=== PATIENT | female | born 1955 | race Caucasian/White ===

== ENCOUNTER 2022-05-17 13:58 | Inpatient (IN) ==
--- NOTE | 2022-05-17 15:28 | DR.EXTPAIN ---
HPI Time seen Time Seen by Provider: 05/17/22 15:26 PCP Primary Care Physician: MOE HPI Comment HPI Comment: A 66 y/o female in the ED due to being sick for last 5 days. She has: headaches, anorexia, productive cough and SOB. She is a chronic smoker but does not have a PCP. Complaint/Symptoms Chief Complaint:: PTS DAUGHTER STATES SHE HAS BEEN DISORIENTED SINCE WEDNESDAY, PT STATES SHE HAS BEEN SICK SINCE WEDNESDAY. PT STATES SHE HAS JUST BEEN SICK WITH HEADACHES, ARTHRITIS, AND NO APPETITE, PT ALSO ADMITS TO BEING SHORT OF BREATH. ROOM O2 @79%. COVID-19 Coronavirus risk:travel/contact w/high risk person: No Has patient experienced Coronavirus symptoms: Yes Coronavirus symptoms experienced: Coughing and Shortness of Breath Nurses notes reviewed Nurses Notes Review: Yes Source History Provided: Patient Mode of arrival Mode of Arrival: Ambulatory Timing Onset of Chief Complaint: 05/11/22 Context History of: None Associated signs and symptoms Associated Signs and Symptoms: Cough, Headache and Shortness of Breath PMH PMH Past Medical History: No Past Surgical History: Yes Surgical History: Hysterectomy Family History History of Family Medical Conditions: No Social History Does patient currently use any type of tobacco product: No Have you used tobacco products in the last 12 months: No Type of Tobacco Use: Cigarettes Does any household member use tobacco: Yes Alcohol Use: None Do you use any recreational Drugs:: No Lives With: Alone Lives Where: Home Travel Risk Coronavirus risk:travel/contact w/high risk person: No Has patient experienced Coronavirus symptoms: Yes Coronavirus symptoms experienced: Shortness of Breath Infectious screening In the last 2 months have you had wt loss of >10#?: NO Have you had fever, night sweats or hemotysis?: No Have you traveled outside the country in the last 6 months?: No Isolation: Standard ROS Review of Systems Constitutional: Loss of Appetite Eyes: No Symptoms Reported ENTM: No Symptoms Reported Respiratoy: Productive Cough and Short of Breath Cardiovascular: No Symptoms Reported Gastrointestinal/Abdominal: No Symptoms Reported Genitourinary: No Symptoms Reported Neurological: Headache Musculoskeletal: No Symptoms Reported Integumentary: No Symptoms Reported Hematologic/Lymphatic: No Symptoms Reported Endocrine: No Symptoms Reported Psychiatric: No Symptoms Reported All Other Systems: Reviewed and Negative PE Vital Signs Vitals: Pulse Rate 96 Respiratory Rate 30 Blood Pressure 140/68 O2 Sat by Pulse Oximetry 88 General Limitations: No Limitations General Appearance: Alert and In No Apparent Distress Head Head Exam: Normal Inspection, Atraumatic and Normocephalic Eyes Eye exam: Normal Appearance and EOMI ENT ENT Exam: Normal Exam, Normal Oropharynx, Normal External Ear Exam and Mucous Membranes Moist Neck Neck Exam: Normal Inspection, Full ROM and Trachea Midline Chest Chest Inspection: Normal Inspection and Symmetric Chest Wall Rise Respiratory Respiratory Exam: Normal Lung Sounds Bilat Cardiovascular Cardiovascular Exam: Regular Rate, Normal Rhythm, Normal Heart Sounds, +S1 and +S2 Abdominal Exam Abdominal Exam: Normal Inspection, Normal Bowel Sounds and Soft Extremities Extremities Exam: Normal Inspection and Full ROM Back Back Exam: Normal Inspection and Full ROM Neurological Neurological Exam: Alert, Oriented X3 and CN II-XII Intact Psychiatric Psychiatric Exam: Normal Affect and Normal Mood Skin Skin Exam: Dry, Intact and Normal Color COURSE Treatment Treatment: her test results were discussed with her and her family as well as my impression of her CXR study. She was given a script for home O2 as she had desatuarated from mid 90s on 5L O2 down into the low 80%s. Her O2 sat was 79% in triage. She has no local PCP and I implored her to find a local PCP in town. I also talked to her about the need to taper and ultimately stop smoking, as her CXR is suggestive/compatible with COPD - currentl, she smokes 1.5 PPD of cigarettes. Reevaluation 1st: Improved Education/Counseling Education/Counseling: Patient, Family, Education and Counseling Educated On: Treatment, Diagnosis, Prognosis and Needs for Follow Up ROR Labs Reviewed Result Diagrams: 05/17/22 15:50 05/17/22 15:50 Laboratory: WBC 4.9 X10^3/uL (3.6-10.0) 05/17/22 15:50 RBC 5.73 X10^6/uL (3.5-5.4) H 05/17/22 15:50 Hgb 16.9 g/dL (12.0-16.0) H 05/17/22 15:50 Hct 50.2 % (36.0-47.0) H 05/17/22 15:50 MCV 87.7 fL (80.0-100.0) 05/17/22 15:50 MCH 29.5 pg (27.0-34.0) 05/17/22 15:50 MCHC 33.7 g/dL (33.0-35.0) 05/17/22 15:50 RDW 13.7 % (11.6-16.5) 05/17/22 15:50 Plt Count 108 X10^3/uL (150.0-450.0) L 05/17/22 15:50 MPV 7.7 fL (7.4-11.0) 05/17/22 15:50 Neut % (Auto) 82.6 % (42.0-75.0) H 05/17/22 15:50 Lymph % (Auto) 6.5 % (21.0-51.0) L 05/17/22 15:50 [place] % (Auto) 9.3 % (0.0-13.0) 05/17/22 15:50 Eos % (Auto) 1.3 % (0.9-2.9) 05/17/22 15:50 Baso % (Auto) 0.3 % (0.2-1.0) 05/17/22 15:50 Neut # (Auto) 4.0 x10^3/uL (2.2-4.8) 05/17/22 15:50 Lymph # (Auto) 0.3 X10^3/uL (1.3-2.9) L 05/17/22 15:50 Emmons # (Auto) 0.4 x10^3/uL (0.3-0.8) 05/17/22 15:50 Eos # (Auto) 0.1 x10^3/uL (0.0-0.2) 05/17/22 15:50 Baso # (Auto) 0.0 X10^3/uL (0.0-0.1) 05/17/22 15:50 Absolute Nucleated RBC 0.0 /100WBC 05/17/22 15:50 Sodium 132 mmol/L (136-145) L 05/17/22 15:50 Corrected Sodium 134 mmol/L (136-145) L 05/17/22 15:50 Potassium 3.9 mmol/L (3.5-5.1) 05/17/22 15:50 Chloride 93 mmol/L (98-107) L 05/17/22 15:50 Carbon Dioxide 31.3 mmol/L (21-32) 05/17/22 15:50 BUN 14 mg/dL (7-18) 05/17/22 15:50 Creatinine 0.96 mg/dL (0.55-1.02) 05/17/22 15:50 Est GFR (MDRD) Af Amer > 60 (>60) 05/17/22 15:50 Est GFR (MDRD) Non-Af > 60 (>60) 05/17/22 15:50 Glucose 186 mg/dL (65-99) H 05/17/22 15:50 Calcium 8.4 mg/dL (8.5-10.1) L 05/17/22 15:50 Corrected Calcium 9.2 mg/dL (8.5-10.1) 05/17/22 15:50 Total Bilirubin 0.50 mg/dL (0.2-1.0) 05/17/22 15:50 AST 21 Units/L (15-37) 05/17/22 15:50 ALT 16 Units/L (12-78) 05/17/22 15:50 Alkaline Phosphatase 70 Units/L (46-116) 05/17/22 15:50 Total Protein 6.8 g/dL (6.4-8.2) 05/17/22 15:50 Albumin 3.0 g/dL (3.4-5.0) L 05/17/22 15:50 Globulin 3.8 g/dL (2.5-4.5) 05/17/22 15:50 Albumin/Globulin Ratio 0.8 Ratio (1.1-2.1) L 05/17/22 15:50 Specimen Type Clean catch urine 05/17/22 17:08 Urine Color Yellow (YELLOW) 05/17/22 17:08 Urine Appearance Slightly hazy (CLEAR) 05/17/22 17:08 Urine pH 5.0 (5.0 - 8.0) 05/17/22 17:08 Ur Specific [place] 1.015 (1.000-1.030) 05/17/22 17:08 Urine Protein 4+ (NEGATIVE) 05/17/22 17:08 Urine Glucose (UA) Negative (NEGATIVE) 05/17/22 17:08 Urine Ketones 1+ (NEGATIVE) 05/17/22 17:08 Urine Blood 1+ (NEGATIVE) 05/17/22 17:08 Urine Nitrite Negative (NEGATIVE) 05/17/22 17:08 Urine Bilirubin 1+ (NEGATIVE) 05/17/22 17:08 Urine Urobilinogen 1+ (NORMAL) 05/17/22 17:08 Ur Leukocyte Esterase 1+ (NEGATIVE) 05/17/22 17:08 Urine RBC 3-5 /HPF (0-3) A 05/17/22 17:08 Urine WBC 3-5 /HPF (0-5) 05/17/22 17:08 Ur Squamous Epith Cells Rare /HPF (NEGATIVE) 05/17/22 17:08 Urine Bacteria Trace /HPF (NEGATIVE) 05/17/22 17:08 Ur Culture Indicated? No/not indicated 05/17/22 17:08 SARS-CoV-2 (PCR) Positive (NEGATIVE) A 05/17/22 17:08 Influenza Type A (PCR) Negative (NEGATIVE) 05/17/22 17:08 Influenza Type B (PCR) Negative (NEGATIVE) 05/17/22 17:08 RSV (PCR) Negative (NEGATIVE) 05/17/22 17:08 Opioid Opioid Risk Tool Age (Rustam box if 16-45): No History of Preadolescent Sexual Abuse: No Total: 0 Total Score Risk Category: Low Risk Copyright: Sean NIELSEN predicting aberrant behaviors Discharge Plan Diagnosis Discharge Problem: COVID-19, COPD exacerbation Discharge Plan Patient Disposition: HOME, SELF-CARE Condition: Stable Prescriptions: New Paxlovid (EUA) 300 mg (150 mg x 2)-100 mg tablets,dose pack See Rx Instructions .ROUTE .COMPLEX Qty: 30 0RF Rx Instructions: take TWO 150 mg tablets of nirmatrelvir with ONE 100 mg tablet of ritonavir twice daily for 5 days Health Concerns: Post Hospitalization: new medications and changes needed to prevent readmission or further decline. Pt educated and given instructions on all concerns. Plan of Treatment: Continue with present treatment and follow up plan. Pt is to keep follow up ap pointment as instructed and take medications as ordered. Orders to Discharge Patient Discharge Orders: Discharge (Routine); Ordered 05/17/22 Ordered By: REYNA SOBOWALE Follow ups/Referrals Follow ups/Referrals: NFD,None [Primary Care Provider] - 3 days Instructions Instructions: COVID-19, Chronic Obstructive Pulmonary Disease, [id number]
[2022-05-17 16:04] LABS: BASOPHILS % (AUTO) 0.3 % (0.2-1.0); EOSINOPHILS # (AUTO) 0.1 x10^3/uL (0.0-0.2); EOSINOPHILS % (AUTO) 1.3 % (0.9-2.9); HEMATOCRIT 50.2 % (36.0-47.0); HEMOGLOBIN 16.9 g/dL (12.0-16.0); LYMPHOCYTES # (AUTO) 0.3 X10^3/uL (1.3-2.9); LYMPHOCYTES % (AUTO) 6.5 % (21.0-51.0); MEAN CORPUSCULAR HEMOGLOBIN 29.5 pg (27.0-34.0); MEAN CORPUSCULAR HGB CONC 33.7 g/dL (33.0-35.0); MEAN CORPUSCULAR VOLUME 87.7 fL (80.0-100.0); MEAN PLATELET VOLUME 7.7 fL (7.4-11.0); MONOCYTES # (AUTO) 0.4 x10^3/uL (0.3-0.8); MONOCYTES % (AUTO) 9.3 % (0.0-13.0); NEUTROPHILS % (AUTO) 82.6 % (42.0-75.0); RED BLOOD COUNT 5.73 X10^6/uL (3.5-5.4); RED CELL DISTRIBUTION WIDTH 13.7 % (11.6-16.5); WHITE BLOOD COUNT 4.9 X10^3/uL (3.6-10.0)
[2022-05-17 16:12] LABS: ALANINE AMINOTRANSFERASE 16 Units/L (12-78); ALKALINE PHOSPHATASE 70 Units/L (46-116); ASPARTATE AMINO TRANSFERASE 21 Units/L (15-37); BLOOD UREA NITROGEN 14 mg/dL (7-18); CALCIUM 8.4 mg/dL (8.5-10.1); CARBON DIOXIDE 31.3 mmol/L (21-32); CHLORIDE 93 mmol/L (98-107); COR CA(FOR HYPOALB) 9.2 mg/dL (8.5-10.1); COR NA(FOR HYPERGLY) 134 mmol/L (136-145); CREATININE 0.96 mg/dL (0.55-1.02); SODIUM 132 mmol/L (136-145); TOTAL PROTEIN 6.8 g/dL (6.4-8.2); eGFR NON BLACK RACES > 60 (>60)
[2022-05-17 17:29] LABS: BILIRUBIN,URINE 1+ (NEGATIVE); BLOOD/HEMOGLOBIN,URINE 1+ (NEGATIVE); GLUCOSE, URINE NEGATIVE (NEGATIVE); KETONES,URINE 1+ (NEGATIVE); LEUKOCYTE ESTERASE ,URINE 1+ (NEGATIVE); NITRITES,URINE NEGATIVE (NEGATIVE); PROTEIN,URINE 4+ (NEGATIVE); UROBILINOGEN,URINE 1+ (NORMAL)
[2022-05-17 17:40] LABS: APPEARANCE,URINE SLIGHTLY HAZY (CLEAR); BACTERIA,URINE TRACE /HPF (NEGATIVE); COLOR,URINE YELLOW (YELLOW); SQUAMOUS EPITHELIAL CELL,UR RARE /HPF (NEGATIVE)
[2022-05-17] MEDS ORDERED: LEVAQUIN PREMIX IV 500 MG 500 MG/100 ML BAG IV ONE ×2 (20:07→20:08)
--- NOTE | 2022-05-17 20:07 | DR.EXTPAIN ---
HPI Time seen Time Seen by Provider: 05/17/22 15:26 PCP Primary Care Physician: MOE Complaint/Symptoms Chief Complaint:: PTS DAUGHTER STATES SHE HAS BEEN DISORIENTED SINCE WEDNESDAY, PT STATES SHE HAS BEEN SICK SINCE WEDNESDAY. PT STATES SHE HAS JUST BEEN SICK WITH HEADACHES, ARTHRITIS, AND NO APPETITE, PT ALSO ADMITS TO BEING SHORT OF BREATH. ROOM O2 @79%. COVID-19 Coronavirus risk:travel/contact w/high risk person: No Has patient experienced Coronavirus symptoms: Yes Coronavirus symptoms experienced: Coughing and Shortness of Breath Source History Provided: Patient Mode of arrival Mode of Arrival: Ambulatory Timing Onset of Chief Complaint: 05/11/22 Associated signs and symptoms Associated Signs and Symptoms: Cough, Headache and Shortness of Breath PMH PMH Past Medical History: No Past Surgical History: Yes Surgical History: Hysterectomy Family History History of Family Medical Conditions: No Social History Does patient currently use any type of tobacco product: No Have you used tobacco products in the last 12 months: No Type of Tobacco Use: Cigarettes Does any household member use tobacco: Yes Alcohol Use: None Do you use any recreational Drugs:: No Lives With: Alone Lives Where: Home Travel Risk Coronavirus risk:travel/contact w/high risk person: No Has patient experienced Coronavirus symptoms: Yes Coronavirus symptoms experienced: Coughing and Shortness of Breath Infectious screening In the last 2 months have you had wt loss of >10#?: NO Have you had fever, night sweats or hemotysis?: No Have you traveled outside the country in the last 6 months?: No Isolation: Standard PE Vital Signs Vitals: Pulse Rate 104 Respiratory Rate 24 Blood Pressure 133/78 O2 Sat by Pulse Oximetry 88 COURSE Treatment Treatment: She was admited overnight to OBS status. She will need Home O@ for now upon discharge. Reevaluation 1st: Improved Education/Counseling Education/Counseling: Patient, Family, Education and Counseling Educated On: Treatment, Diagnosis, Prognosis and Needs for Follow Up ROR Labs Reviewed Result Diagrams: 05/17/22 15:50 05/17/22 15:50 Laboratory: WBC 4.9 X10^3/uL (3.6-10.0) 05/17/22 15:50 RBC 5.73 X10^6/uL (3.5-5.4) H 05/17/22 15:50 Hgb 16.9 g/dL (12.0-16.0) H 05/17/22 15:50 Hct 50.2 % (36.0-47.0) H 05/17/22 15:50 MCV 87.7 fL (80.0-100.0) 05/17/22 15:50 MCH 29.5 pg (27.0-34.0) 05/17/22 15:50 MCHC 33.7 g/dL (33.0-35.0) 05/17/22 15:50 RDW 13.7 % (11.6-16.5) 05/17/22 15:50 Plt Count 108 X10^3/uL (150.0-450.0) L 05/17/22 15:50 MPV 7.7 fL (7.4-11.0) 05/17/22 15:50 Neut % (Auto) 82.6 % (42.0-75.0) H 05/17/22 15:50 Lymph % (Auto) 6.5 % (21.0-51.0) L 05/17/22 15:50 [place] % (Auto) 9.3 % (0.0-13.0) 05/17/22 15:50 Eos % (Auto) 1.3 % (0.9-2.9) 05/17/22 15:50 Baso % (Auto) 0.3 % (0.2-1.0) 05/17/22 15:50 Neut # (Auto) 4.0 x10^3/uL (2.2-4.8) 05/17/22 15:50 Lymph # (Auto) 0.3 X10^3/uL (1.3-2.9) L 05/17/22 15:50 [place] # (Auto) 0.4 x10^3/uL (0.3-0.8) 05/17/22 15:50 Eos # (Auto) 0.1 x10^3/uL (0.0-0.2) 05/17/22 15:50 Baso # (Auto) 0.0 X10^3/uL (0.0-0.1) 05/17/22 15:50 Absolute Nucleated RBC 0.0 /100WBC 05/17/22 15:50 Sodium 132 mmol/L (136-145) L 05/17/22 15:50 Corrected Sodium 134 mmol/L (136-145) L 05/17/22 15:50 Potassium 3.9 mmol/L (3.5-5.1) 05/17/22 15:50 Chloride 93 mmol/L (98-107) L 05/17/22 15:50 Carbon Dioxide 31.3 mmol/L (21-32) 05/17/22 15:50 BUN 14 mg/dL (7-18) 05/17/22 15:50 Creatinine 0.96 mg/dL (0.55-1.02) 05/17/22 15:50 Est GFR (MDRD) Af Amer > 60 (>60) 05/17/22 15:50 Est GFR (MDRD) Non-Af > 60 (>60) 05/17/22 15:50 Glucose 186 mg/dL (65-99) H 05/17/22 15:50 Calcium 8.4 mg/dL (8.5-10.1) L 05/17/22 15:50 Corrected Calcium 9.2 mg/dL (8.5-10.1) 05/17/22 15:50 Total Bilirubin 0.50 mg/dL (0.2-1.0) 05/17/22 15:50 AST 21 Units/L (15-37) 05/17/22 15:50 ALT 16 Units/L (12-78) 05/17/22 15:50 Alkaline Phosphatase 70 Units/L (46-116) 05/17/22 15:50 Total Protein 6.8 g/dL (6.4-8.2) 05/17/22 15:50 Albumin 3.0 g/dL (3.4-5.0) L 05/17/22 15:50 Globulin 3.8 g/dL (2.5-4.5) 05/17/22 15:50 Albumin/Globulin Ratio 0.8 Ratio (1.1-2.1) L 05/17/22 15:50 Specimen Type Clean catch urine 05/17/22 17:08 Urine Color Yellow (YELLOW) 05/17/22 17:08 Urine Appearance Slightly hazy (CLEAR) 05/17/22 17:08 Urine pH 5.0 (5.0 - 8.0) 05/17/22 17:08 Ur Specific [place] 1.015 (1.000-1.030) 05/17/22 17:08 Urine Protein 4+ (NEGATIVE) 05/17/22 17:08 Urine Glucose (UA) Negative (NEGATIVE) 05/17/22 17:08 Urine Ketones 1+ (NEGATIVE) 05/17/22 17:08 Urine Blood 1+ (NEGATIVE) 05/17/22 17:08 Urine Nitrite Negative (NEGATIVE) 05/17/22 17:08 Urine Bilirubin 1+ (NEGATIVE) 05/17/22 17:08 Urine Urobilinogen 1+ (NORMAL) 05/17/22 17:08 Ur Leukocyte Esterase 1+ (NEGATIVE) 05/17/22 17:08 Urine RBC 3-5 /HPF (0-3) A 05/17/22 17:08 Urine WBC 3-5 /HPF (0-5) 05/17/22 17:08 Ur Squamous Epith Cells Rare /HPF (NEGATIVE) 05/17/22 17:08 Urine Bacteria Trace /HPF (NEGATIVE) 05/17/22 17:08 Ur Culture Indicated? No/not indicated 05/17/22 17:08 SARS-CoV-2 (PCR) Positive (NEGATIVE) A 05/17/22 17:08 Influenza Type A (PCR) Negative (NEGATIVE) 05/17/22 17:08 Influenza Type B (PCR) Negative (NEGATIVE) 05/17/22 17:08 RSV (PCR) Negative (NEGATIVE) 05/17/22 17:08 Opioid Opioid Risk Tool Age (Rustam box if 16-45): No History of Preadolescent Sexual Abuse: No Total: 0 Total Score Risk Category: Low Risk Copyright: Sean NIELSEN predicting aberrant behaviors Discharge Plan Diagnosis Discharge Problem: COVID-19, COPD exacerbation Discharge Plan Patient Disposition: 09 ADMITTED INPATIENT Condition: Stable Prescriptions: New Paxlovid (EUA) 300 mg (150 mg x 2)-100 mg tablets,dose pack See Rx Instructions .ROUTE .COMPLEX Qty: 30 0RF Rx Instructions: take TWO 150 mg tablets of nirmatrelvir with ONE 100 mg tablet of ritonavir twice daily for 5 days Health Concerns: Post Hospitalization: new medications and changes needed to prevent readmission or further decline. Pt educated and given instructions on all concerns. Plan of Treatment: Continue with present treatment and follow up plan. Pt is to keep follow up appointment as instructed and take medications as ordered. Orders to Discharge Patient Discharge Orders: Discharge (Routine); Ordered 05/17/22 Ordered By: REYNA MUÑOZ Transfer (Routine); Ordered 05/17/22 Ordered By: REYNA MUÑOZ Follow ups/Referrals Follow ups/Referrals: NFD,None [Primary Care Provider] - 3 days Instructions Instructions: COVID-19, Chronic Obstructive Pulmonary Disease, [id number]
[2022-05-17] MEDS ORDERED: SALINE 3% 15 ML NEB TX ONE (21:08)
[2022-05-17] MEDS ORDERED: SALINE 3% 15 ML NEB TX NEB ONE (21:15)
[2022-05-17] MEDS: DUONEB 0.5 MG/3 MG (3 mL) NEB SCH (21:15)
--- NOTE | 2022-05-17 22:08 | RAD ---
HISTORYsob, smokingSTUDYCHEST, 1 VIEWCOMPARISONNone availableTECHNIQUEChest radiographic imaging, AP portable projection, 1 imageFINDINGSNo cardiomegaly.No focal airspace disease.Brittni B-lines along the periphery of the right lung base.Increased interstitial markings; particularly in the lower lobes.No pleural effusion.No pneumothorax.No acute osseous abnormality.IMPRESSIONFindings are concerning for mild pulmonary edema given the Brittni B-lines along the periphery of the right lung base. No focal infiltrate.Electronically signed by: Rambo Cordova (May 17, 2022 22:07:00)
[2022-05-18] MEDS: TYLENOL 325 MG TAB PO PRN ×2 (00:04→09:01)
[2022-05-18] MEDS: DUONEB 0.5 MG/3 MG (3 mL) NEB SCH ×6 (00:19→21:34)
[2022-05-18 05:30] LABS: ABG BASE EXCESS 10.1 mmol/L (-2.0-2.0)
[2022-05-18 06:40] LABS: BASOPHILS % (AUTO) 0.1 % (0.2-1.0); HEMOGLOBIN 16.6 g/dL (12.0-16.0); LYMPHOCYTES # (AUTO) 0.9 X10^3/uL (1.3-2.9); LYMPHOCYTES % (AUTO) 17.1 % (21.0-51.0); MEAN CORPUSCULAR HEMOGLOBIN 29.7 pg (27.0-34.0); MEAN CORPUSCULAR VOLUME 87.4 fL (80.0-100.0); MONOCYTES # (AUTO) 0.5 x10^3/uL (0.3-0.8); MONOCYTES % (AUTO) 9.7 % (0.0-13.0); NEUTROPHILS # (AUTO) 3.9 x10^3/uL (2.2-4.8); NEUTROPHILS % (AUTO) 73.1 % (42.0-75.0); RED CELL DISTRIBUTION WIDTH 13.7 % (11.6-16.5); WHITE BLOOD COUNT 5.3 X10^3/uL (3.6-10.0)
[2022-05-18 06:46] LABS: ALANINE AMINOTRANSFERASE 11 Units/L (12-78); ALBUMIN 2.6 g/dL (3.4-5.0); ALKALINE PHOSPHATASE 63 Units/L (46-116); ASPARTATE AMINO TRANSFERASE 18 Units/L (15-37); BLOOD UREA NITROGEN 14 mg/dL (7-18); CALCIUM 8.1 mg/dL (8.5-10.1); CARBON DIOXIDE 31.1 mmol/L (21-32); CHLORIDE 95 mmol/L (98-107); COR CA(FOR HYPOALB) 9.2 mg/dL (8.5-10.1); COR NA(FOR HYPERGLY) 136 mmol/L (136-145); CREATININE 0.98 mg/dL (0.55-1.02); SODIUM 134 mmol/L (136-145); TOTAL PROTEIN 6.3 g/dL (6.4-8.2); eGFR NON BLACK RACES > 60 (>60)
[2022-05-18] MEDS: VSL#3 PO SCH (08:42)
[2022-05-18] MEDS ORDERED: MICRO K EXTEN CAP 10 MEQ PO PRN (09:21)
[2022-05-18] MEDS ORDERED: POTASSIUM CHL 60 MEQ/NS 0.45% 500 ML IV PRN (09:21)
[2022-05-18] MEDS ORDERED: KLOR-CON PO PRN (09:21)
[2022-05-18] MEDS ORDERED: K-RIDER 10 MEQ/NS 100 ML 10 MEQ/100 ML BAG IV PRN (09:21)
[2022-05-18] MEDS ORDERED: POTASSIUM CHLORIDE LIQ 20 MEQ UDC PO PRN (09:21)
[2022-05-18] MEDS ORDERED: POTASSIUM CHL 40 MEQ/NS 0.45% 500 ML IV PRN (09:21)
[2022-05-18] MEDS ORDERED: K-DUR TAB 20 MEQ PO PRN (09:21)
[2022-05-18] MEDS: MAGNESIUM SULFATE 1 GRAM/100 mL PREMIX 1 G/100 ML BAG IV PRN ×2 (10:11→11:52)
[2022-05-18] MEDS: PULMICORT NEB TX 0.5 MG NEB SCH ×2 (13:13→21:34)
[2022-05-18 13:58] LABS: ABG HCO3 32.5 mmol/L (22-26)
[2022-05-18] MEDS: SOLU-Medrol 40 MG VIAL IVP SCH ×2 (14:00→14:09)
[2022-05-18] MEDS: ROBITUSSIN DM PO SCH ×3 (14:09→20:50)
[2022-05-18] MEDS: LOVENOX INJ 40 MG SYR SC SCH (14:16)
--- NOTE | 2022-05-18 17:46 | DR.H&P ---
H&P - History & Physical for Day of: H&P Date: 05/17/22 - Chief Complaint Chief Complaint: SOB - History of Present Illness History of Present Illness: PT IS A 66 WF, ER ADMISSION WITH CO PER PTS DAUGHTER STATES SHE HAS BEEN DISORIENTED SINCE WEDNESDAY, PT STATES SHE HAS BEEN SICK SINCE WEDNESDAY. PT STATES SHE HAS JUST BEEN SICK WITH HEADACHES, ARTHRITIS, AND NO APPETITE, PT ALSO ADMITS TO BEING SHORT OF BREATH. ROOM O2 @79%. PMH OF DAILY SMOKER, DENIES ANY PMH OF KNOWN CARDIAC DISEASE OR DIABETES - Past Medical History Past Medical History: COPD - Past Surgical History Surgical History: Hysterectomy - Family History Family Medical History: Cancer - Social History Does patient currently use any type of tobacco product: Yes Have you used tobacco products in the last 12 months: Yes Type of Tobacco Use: Cigarettes How many years tobacco product used: 50 Does any household member use tobacco: Yes Alcohol Use: None Drug Use: None - Medications Home Medications: codeine Adverse Reaction (Severe, Verified 05/17/22 22:54) nausea/vomiting CONTINUE taking the following medications NK 05/17/22 [History] - Review of Systems Constitutional: Weakness, Malaise Eyes: No Symptoms Reported ENT: No Symptoms Reported Respiratory: Cough, Shortness of Breath, SOB with Excertion, Wheezing Cardiovascular: Palpitations Gastrointestinal: Nausea, Other (POOR APPETITE) Genitourinary: No Symptoms Reported Musculoskeletal: No Symptoms Reported Skin: No Symptoms Reported Neurological: Weakness - Physical Exam Vital Signs: Temperature 98.5 F Pulse Rate [Left Radial] 81 Pulse Rate 87 Respiratory Rate 20 Blood Pressure [Right Arm] 131/75 Blood Pressure [Left Arm] 125/81 Blood Pressure 132/70 O2 Sat by Pulse Oximetry 89 Oriented: Normal Eyes: Normal Ear: Normal Nose: Normal Throat: Normal Respiratory: Diminished Throughout Cardiovascular: Normal : Normal Auscultation: Bowel Sounds: Normal Palpation: Normal Tenderness: Epigastric, Mild Skin: Decreased Turgur Musculoskeletal: Back:Lumbar Psychiatric: Anxiety Affect: Anxious Speech Pattern: Clear, Appropriate - Assessment/Plan (1) Pneumonia due to 2019 novel coronavirus Status: Acute Plan: ADMIT, IV ATBX THERAPY, SUPPLEMENTAL O2. ABG ON ADMISSION, VERIFY HOME MEDICATION. BLOOD AND SPUTUM CULTURES. CARDIAC MONITORING (2) Hypoxemia Status: Acute (3) COPD exacerbation Status: Acute - Allergies Allergies/Adverse Reactions: Allergies Allergy/AdvReac Type Severity Reaction Status Date / Time codeine AdvReac Severe nausea/vomi Verified 05/17/22 22:54 gabi
[2022-05-18] MEDS ORDERED: REMDESIVIR 200 MG in NS 250 ML IV 250 ML IV ONE (17:47)
[2022-05-18] MEDS ORDERED: NS 250 ML IV 250 ML IV ONE (18:22)
[2022-05-18] MEDS: LEVAQUIN PREMIX IV 500 MG 500 MG/100 ML BAG IV SCH (20:49)
[2022-05-18] MEDS: SOLU-Medrol 125 MG VIAL IVP SCH (21:39)
[2022-05-19] MEDS: SOLU-Medrol 125 MG VIAL IVP SCH ×3 (05:23→21:11)
[2022-05-19 06:02] LABS: BASOPHILS % (AUTO) 0.2 % (0.2-1.0); HEMATOCRIT 47.3 % (36.0-47.0); HEMOGLOBIN 15.9 g/dL (12.0-16.0); LYMPHOCYTES # (AUTO) 0.3 X10^3/uL (1.3-2.9); LYMPHOCYTES % (AUTO) 4.1 % (21.0-51.0); MEAN CORPUSCULAR HEMOGLOBIN 29.4 pg (27.0-34.0); MEAN CORPUSCULAR HGB CONC 33.6 g/dL (33.0-35.0); MEAN CORPUSCULAR VOLUME 87.5 fL (80.0-100.0); MEAN PLATELET VOLUME 7.8 fL (7.4-11.0); MONOCYTES # (AUTO) 0.2 x10^3/uL (0.3-0.8); MONOCYTES % (AUTO) 3.5 % (0.0-13.0); NEUTROPHILS # (AUTO) 5.7 x10^3/uL (2.2-4.8); NEUTROPHILS % (AUTO) 92.2 % (42.0-75.0); RED CELL DISTRIBUTION WIDTH 13.9 % (11.6-16.5); WHITE BLOOD COUNT 6.2 X10^3/uL (3.6-10.0)
[2022-05-19] MEDS: DUONEB 0.5 MG/3 MG (3 mL) NEB SCH ×6 (06:08→20:10)
[2022-05-19 06:12] LABS: ALANINE AMINOTRANSFERASE 13 Units/L (12-78); ALBUMIN 2.4 g/dL (3.4-5.0); ALKALINE PHOSPHATASE 63 Units/L (46-116); ASPARTATE AMINO TRANSFERASE 15 Units/L (15-37); BLOOD UREA NITROGEN 17 mg/dL (7-18); CALCIUM 8.2 mg/dL (8.5-10.1); CARBON DIOXIDE 29.5 mmol/L (21-32); CHLORIDE 92 mmol/L (98-107); COR CA(FOR HYPOALB) 9.5 mg/dL (8.5-10.1); COR NA(FOR HYPERGLY) 135 mmol/L (136-145); CREATININE 0.97 mg/dL (0.55-1.02); MAGNESIUM 1.9 mg/dL (2.0-2.9); SODIUM 129 mmol/L (136-145); TOTAL PROTEIN 6.3 g/dL (6.4-8.2); eGFR NON BLACK RACES > 60 (>60)
[2022-05-19 06:35] LABS: BAND NEUTROPHILS % 3 % (0-10); PLATELET MORPHOLOGY COMMENT NORMAL (NORMAL)
[2022-05-19] MEDS: MAGNESIUM SULFATE 1 GRAM/100 mL PREMIX 1 G/100 ML BAG IV PRN ×2 (06:44→10:17)
--- NOTE | 2022-05-19 07:36 | RAD ---
HISTORYCOVID-19, pneumoniaSTUDYChest AP [id number]/01/2023FINDINGSHear t size is normal. Reba are normal. Interstitial infiltrates are now present in the right lung base more prominent than on the prior examination and possibly representing acute pneumonitis or atypical pneumonia. Remainder of the lung ramon are clear. No pleural effusions are identified. Bony thorax is unremarkable.IMPRESSIONIncreasing right basilar interstitial infiltrate possibly acute pneumonitis or atypical pneumonia.Electronically signed by: BUCK HAIDER (May 19, 2022 07:35:57)
[2022-05-19] MEDS: PULMICORT NEB TX 0.5 MG NEB SCH ×2 (08:25→20:10)
[2022-05-19] MEDS: REMDESIVIR 100 MG in NS 100 ML IV 120 ML IV SCH (08:42)
[2022-05-19] MEDS: LOVENOX INJ 40 MG SYR SC SCH (08:43)
[2022-05-19] MEDS: VSL#3 PO SCH (08:44)
[2022-05-19] MEDS: ROBITUSSIN DM PO SCH ×4 (08:45→21:11)
[2022-05-19] MEDS ORDERED: K-DUR TAB 20 MEQ PO SCH (10:00)
[2022-05-19] MEDS ORDERED: LASIX IVP SCH (10:00)
[2022-05-19] MEDS: NS 1,000 ML IV 1,000 ML IV SCH (10:17)
[2022-05-19] MEDS: NovoLIN R (or HumuLIN R) SUBCUT PRN ×3 (11:35→21:15)
[2022-05-19] MEDS: PROTONIX INJ 40 MG VIAL IVP SCH (18:52)
[2022-05-19] MEDS: LEVAQUIN PREMIX IV 500 MG 500 MG/100 ML BAG IV SCH (21:00)
[2022-05-19] MEDS: SNACK - Diabetic Appropriate PO SCH (22:12)
[2022-05-20] MEDS: NS 1,000 ML IV 1,000 ML IV SCH ×3 (01:01→13:34)
[2022-05-20] MEDS: DUONEB 0.5 MG/3 MG (3 mL) NEB SCH ×6 (01:10→20:58)
[2022-05-20] MEDS: SOLU-Medrol 125 MG VIAL IVP SCH ×3 (05:20→21:01)
[2022-05-20 05:23] LABS: BASOPHILS % (AUTO) 0 % (0.2-1.0); HEMATOCRIT 45.3 % (36.0-47.0); HEMOGLOBIN 15.5 g/dL (12.0-16.0); LYMPHOCYTES # (AUTO) 0.3 X10^3/uL (1.3-2.9); LYMPHOCYTES % (AUTO) 2.9 % (21.0-51.0); MEAN CORPUSCULAR HEMOGLOBIN 29.6 pg (27.0-34.0); MEAN CORPUSCULAR HGB CONC 34.1 g/dL (33.0-35.0); MEAN CORPUSCULAR VOLUME 86.8 fL (80.0-100.0); MEAN PLATELET VOLUME 7.7 fL (7.4-11.0); MONOCYTES # (AUTO) 0.4 x10^3/uL (0.3-0.8); MONOCYTES % (AUTO) 3.5 % (0.0-13.0); NEUTROPHILS % (AUTO) 93.6 % (42.0-75.0); RED BLOOD COUNT 5.22 X10^6/uL (3.5-5.4); RED CELL DISTRIBUTION WIDTH 13.6 % (11.6-16.5); WHITE BLOOD COUNT 10.7 X10^3/uL (3.6-10.0)
[2022-05-20 05:35] LABS: ALANINE AMINOTRANSFERASE 13 Units/L (12-78); ALBUMIN 2.4 g/dL (3.4-5.0); ALKALINE PHOSPHATASE 59 Units/L (46-116); ASPARTATE AMINO TRANSFERASE 15 Units/L (15-37); BLOOD UREA NITROGEN 28 mg/dL (7-18); CALCIUM 8.5 mg/dL (8.5-10.1); CARBON DIOXIDE 28.7 mmol/L (21-32); CHLORIDE 94 mmol/L (98-107); COR CA(FOR HYPOALB) 9.8 mg/dL (8.5-10.1); COR NA(FOR HYPERGLY) 135 mmol/L (136-145); CREATININE 0.95 mg/dL (0.55-1.02); MAGNESIUM 1.7 mg/dL (2.0-2.9); SODIUM 131 mmol/L (136-145); TOTAL PROTEIN 6.1 g/dL (6.4-8.2); eGFR NON BLACK RACES > 60 (>60)
[2022-05-20 05:46] LABS: BAND NEUTROPHILS % 5 % (0-10); PLATELET MORPHOLOGY COMMENT NORMAL (NORMAL)
[2022-05-20] MEDS: MAGNESIUM SULFATE 1 GRAM/100 mL PREMIX 1 G/100 ML BAG IV PRN ×2 (06:06→07:19)
[2022-05-20] MEDS: NovoLIN R (or HumuLIN R) SUBCUT PRN ×4 (06:07→21:07)
[2022-05-20 07:19] LABS: ABG BASE EXCESS 4.1 mmol/L (-2.0-2.0); ABG HCO3 28.5 mmol/L (22-26)
[2022-05-20 07:21] LABS: ABG ALLEN TEST POS
--- NOTE | 2022-05-20 07:44 | RAD ---
HISTORYFollow-up COVID-19STUDYChest AP [id number]/03/2023FINDINGSHear t size is normal. Reba are normal. Aorta is calcified. Lungs are well inflated. Increasing infiltrate is present in the right lung base and there is now some interstitial infiltrate in the left lung base. Findings could be consistent with acute pneumonitis or atypical pneumonia. Remainder of the lung ramon are clear. No pleural effusions are identified. Bony thorax is unremarkable.IMPRESSIONIncreasing interstitial and now some ground-glass infiltrates in the right lung baseNew interstitial infiltrates left lung baseElectronically signed by: BUCK HAIDER (May 20, 2022 07:42:58)
[2022-05-20] MEDS: PULMICORT NEB TX 0.5 MG NEB SCH ×2 (08:15→20:58)
[2022-05-20] MEDS: REMDESIVIR 100 MG in NS 100 ML IV 120 ML IV SCH (09:14)
[2022-05-20] MEDS: PROTONIX INJ 40 MG VIAL IVP SCH (09:15)
[2022-05-20] MEDS: VSL#3 PO SCH (09:15)
[2022-05-20] MEDS: ROBITUSSIN DM PO SCH ×4 (09:15→21:06)
[2022-05-20] MEDS: LOVENOX INJ 40 MG SYR SC SCH (09:16)
[2022-05-20] MEDS: NYSTATIN SUSP MT SCH ×4 (09:16→21:06)
--- NOTE | 2022-05-20 09:44 | CT ---
HISTORYHypoxia, COVID-19STUDYCTA chest with contrast for pulmonary embolusTechnique: Axial post-contrast images with coronal, sagittal, and 3 dimensional maximum intensity projection images obtained and evaluated. Dose reduction procedures were used with mA/kv adjusted for body size.COMPARISONNoneFINDINGSThere is no evidence for acute pulmonary thromboembolic disease. Examination of the mediastinum demonstrated no evidence for mediastinal masses, enlarged mediastinal or enlarged hilar adenopathy or significant aortic abnormality. Trace bilateral pleural effusions are present. No chest wall or axillary abnormality is identified. Those portions of the upper abdominal organs visualized were within normal limits to the limitations of early arterial injection timing. Examination of the lung ramon demonstrated changes of paraseptal and centrilobular emphysema in the upper lobes bilaterally right greater than left. Bilateral lower lobe interstitial and peribronchial infiltrates are identified right greater than left with some peribronchial consolidation on the right. There is also diffuse peribronchial thickening lower lobe greater than upper lobes consistent with bronchitis which could be acute, chronic, or both. No definite nodules or masses are identified.IMPRESSIONNo evidence for acute pulmonary thromboembolic diseaseBilateral lower lobe interstitial and peribronchial infiltrate much more prominent on the right than the left. There is also some peribronchial consolidation on the right.Diffuse peribronchial thickening consistent with bronchitis which could be acute, chronic, or both.Electronically signed by: BUCK HAIDER (May 20, 2022 09:43:56)
[2022-05-20] MEDS: LEVAQUIN PREMIX IV 500 MG 500 MG/100 ML BAG IV SCH (20:59)
[2022-05-20] MEDS: SNACK - Diabetic Appropriate PO SCH (21:09)
[2022-05-21] MEDS: DUONEB 0.5 MG/3 MG (3 mL) NEB SCH ×5 (01:03→20:25)
[2022-05-21] MEDS: NS 1,000 ML IV 1,000 ML IV SCH ×2 (05:00→17:15)
[2022-05-21] MEDS: NovoLIN R (or HumuLIN R) SUBCUT PRN ×4 (05:39→21:33)
[2022-05-21] MEDS: SOLU-Medrol 125 MG VIAL IVP SCH ×3 (05:39→21:31)
[2022-05-21 06:21] LABS: BASOPHILS % (AUTO) 0.1 % (0.2-1.0); HEMATOCRIT 47.8 % (36.0-47.0); HEMOGLOBIN 15.8 g/dL (12.0-16.0); LYMPHOCYTES # (AUTO) 0.2 X10^3/uL (1.3-2.9); LYMPHOCYTES % (AUTO) 1.7 % (21.0-51.0); MEAN CORPUSCULAR HEMOGLOBIN 29.1 pg (27.0-34.0); MEAN CORPUSCULAR VOLUME 88.2 fL (80.0-100.0); MEAN PLATELET VOLUME 7.7 fL (7.4-11.0); MONOCYTES # (AUTO) 0.4 x10^3/uL (0.3-0.8); MONOCYTES % (AUTO) 3.4 % (0.0-13.0); NEUTROPHILS % (AUTO) 94.8 % (42.0-75.0); RED BLOOD COUNT 5.41 X10^6/uL (3.5-5.4); RED CELL DISTRIBUTION WIDTH 13.8 % (11.6-16.5); WHITE BLOOD COUNT 12.7 X10^3/uL (3.6-10.0)
[2022-05-21 06:31] LABS: ALANINE AMINOTRANSFERASE 13 Units/L (12-78); ALBUMIN 2.5 g/dL (3.4-5.0); ALKALINE PHOSPHATASE 61 Units/L (46-116); ASPARTATE AMINO TRANSFERASE 14 Units/L (15-37); BLOOD UREA NITROGEN 30 mg/dL (7-18); CALCIUM 8.4 mg/dL (8.5-10.1); CARBON DIOXIDE 27.6 mmol/L (21-32); CHLORIDE 94 mmol/L (98-107); COR CA(FOR HYPOALB) 9.6 mg/dL (8.5-10.1); COR NA(FOR HYPERGLY) 135 mmol/L (136-145); CREATININE 1.11 mg/dL (0.55-1.02); MAGNESIUM 1.9 mg/dL (2.0-2.9); SODIUM 130 mmol/L (136-145); TOTAL PROTEIN 6.5 g/dL (6.4-8.2); eGFR NON BLACK RACES 52 (>60)
[2022-05-21 06:47] LABS: BAND NEUTROPHILS % 5 % (0-10)
[2022-05-21 06:48] LABS: PLATELET MORPHOLOGY COMMENT NORMAL (NORMAL)
[2022-05-21] MEDS: ROBITUSSIN DM PO SCH ×4 (08:11→20:04)
[2022-05-21] MEDS: VSL#3 PO SCH (08:11)
[2022-05-21] MEDS: NYSTATIN SUSP MT SCH ×4 (08:12→20:04)
[2022-05-21] MEDS: LOVENOX INJ 40 MG SYR SC SCH (08:12)
[2022-05-21] MEDS: PROTONIX INJ 40 MG VIAL IVP SCH (08:12)
[2022-05-21] MEDS: REMDESIVIR 100 MG in NS 100 ML IV 120 ML IV SCH (08:18)
[2022-05-21] MEDS: PULMICORT NEB TX 0.5 MG NEB SCH ×2 (08:39→20:25)
[2022-05-21] MEDS ORDERED: LASIX IVP SCH (09:00)
[2022-05-21] MEDS ORDERED: MICRO K EXTEN CAP 10 MEQ PO SCH (09:00)
[2022-05-21] MEDS: MAGNESIUM SULFATE 1 GRAM/100 mL PREMIX 1 G/100 ML BAG IV PRN ×2 (09:42→12:17)
[2022-05-21] MEDS: JANUVIA PO SCH (14:29)
[2022-05-21] MEDS: ZITHROMAX INJ 500 MG VIAL 500 MG in NS 250 ML IV 250 ML IV SCH (14:34)
[2022-05-21] MEDS: LEVAQUIN PREMIX IV 500 MG 500 MG/100 ML BAG IV SCH (19:24)
[2022-05-21] MEDS: SNACK - Diabetic Appropriate PO SCH ×2 (20:08)
[2022-05-22] MEDS: DUONEB 0.5 MG/3 MG (3 mL) NEB SCH ×6 (04:00→20:44)
[2022-05-22] MEDS: SOLU-Medrol 125 MG VIAL IVP SCH (05:07)
[2022-05-22] MEDS: NovoLIN R (or HumuLIN R) SUBCUT PRN ×4 (05:39→20:53)
[2022-05-22 06:39] LABS: BASOPHILS % (AUTO) 0.2 % (0.2-1.0); HEMATOCRIT 45.6 % (36.0-47.0); HEMOGLOBIN 15.3 g/dL (12.0-16.0); LYMPHOCYTES # (AUTO) 0.1 X10^3/uL (1.3-2.9); LYMPHOCYTES % (AUTO) 1.5 % (21.0-51.0); MEAN CORPUSCULAR HGB CONC 33.5 g/dL (33.0-35.0); MEAN CORPUSCULAR VOLUME 86.5 fL (80.0-100.0); MEAN PLATELET VOLUME 7.5 fL (7.4-11.0); MONOCYTES # (AUTO) 0.4 x10^3/uL (0.3-0.8); MONOCYTES % (AUTO) 3.9 % (0.0-13.0); NEUTROPHILS # (AUTO) 9.1 x10^3/uL (2.2-4.8); NEUTROPHILS % (AUTO) 94.4 % (42.0-75.0); RED BLOOD COUNT 5.27 X10^6/uL (3.5-5.4); RED CELL DISTRIBUTION WIDTH 13.6 % (11.6-16.5); WHITE BLOOD COUNT 9.6 X10^3/uL (3.6-10.0)
[2022-05-22 07:06] LABS: ALANINE AMINOTRANSFERASE 15 Units/L (12-78); ALBUMIN 2.4 g/dL (3.4-5.0); ALKALINE PHOSPHATASE 65 Units/L (46-116); ASPARTATE AMINO TRANSFERASE 15 Units/L (15-37); BLOOD UREA NITROGEN 27 mg/dL (7-18); CALCIUM 8.3 mg/dL (8.5-10.1); CARBON DIOXIDE 28.8 mmol/L (21-32); CHLORIDE 96 mmol/L (98-107); COR CA(FOR HYPOALB) 9.6 mg/dL (8.5-10.1); COR NA(FOR HYPERGLY) 135 mmol/L (136-145); CREATININE 0.92 mg/dL (0.55-1.02); MAGNESIUM 1.9 mg/dL (2.0-2.9); SODIUM 131 mmol/L (136-145); TOTAL PROTEIN 5.6 g/dL (6.4-8.2); eGFR NON BLACK RACES > 60 (>60)
[2022-05-22 07:09] LABS: BAND NEUTROPHILS % 2 % (0-10); PLATELET MORPHOLOGY COMMENT NORMAL (NORMAL)
[2022-05-22] MEDS: VSL#3 PO SCH (08:16)
[2022-05-22] MEDS: JANUVIA PO SCH (08:17)
[2022-05-22] MEDS: PROTONIX INJ 40 MG VIAL IVP SCH (08:19)
[2022-05-22] MEDS: LOVENOX INJ 40 MG SYR SC SCH (08:19)
[2022-05-22] MEDS: PULMICORT NEB TX 0.5 MG NEB SCH ×2 (08:20→20:44)
[2022-05-22] MEDS: ROBITUSSIN DM PO SCH ×4 (08:21→20:51)
[2022-05-22] MEDS: NYSTATIN SUSP MT SCH ×4 (08:21→20:52)
[2022-05-22] MEDS: ZITHROMAX INJ 500 MG VIAL 500 MG in NS 250 ML IV 250 ML IV SCH (08:22)
[2022-05-22] MEDS: NS 1,000 ML IV 1,000 ML IV SCH ×2 (09:37→23:38)
[2022-05-22 10:20] LABS: ABG BASE EXCESS 5.1 mmol/L (-2.0-2.0); ABG HCO3 29.9 mmol/L (22-26)
[2022-05-22 10:22] LABS: ABG ALLEN TEST POS
--- NOTE | 2022-05-22 10:57 | RAD ---
HISTORYPNEUMONIASTUDYCHEST, 1 [id number]/04/2023FINDINGSThe cardiomediastinal silhouette is stable. Chronic interstitial changes in the lungs. Similar likely superimposed acute bibasilar airspace disease. No pneumothorax or effusion. The bony thorax appears intact.IMPRESSIONSimilar bibasilar opacities.Electronically signed by: BUCK HAIDER (May 22, 2022 10:55:26)
[2022-05-22] MEDS: REMDESIVIR 100 MG in NS 100 ML IV 120 ML IV SCH (11:24)
--- NOTE | 2022-05-22 13:06 | PCM.PROG ---
Progress Note - Progress Note for Day of Date of Exam: 05/22/22 - Subjective Subjective: The patient is a 66-year-old white female being treated for COVID-19 pneumonia with hypoxia. The patient had a CTA of her lungs yesterday to rule out PE, it was negative for PE, but showed bilateral lower lobe infiltrates more prominent on the right than the left. She has been treated with Remdesivir. The patient is on antibiotics with Levaquin and azithromycin which she will receive her first dose this morning. She is also on Solu-Medrol and aggressive respiratory therapy. The patient has been hyperglycemic with no history of previous diabetes mellitus. I suspect that it is worse because of the corticosteroids. The patient is having some mucus production, but it is minimal and clear. The patient denies any hemoptysis. She denies any chest pain or nausea. The patient reports that appetite is improving. She states that she did rest well last night. The patient continues to be hypoxic saturating around 90% on 3 L of OxyMask. We encouraged oral hydration with electrolyte drink like Gatorade or Powerade due to her low sodium - Past Medical Family Social History Allergies: Allergies codeine Adverse Reaction (Severe, Verified 05/17/22 22:54) nausea/vomiting - Vital Signs and I&O's Vital Signs: Temperature 97.6 F Pulse Rate [Right Brachial] 103 Pulse Rate [Left Radial] 71 Pulse Rate 66 Respiratory Rate 20 Blood Pressure [Right Arm] 138/81 Blood Pressure [Left Arm] 125/81 Blood Pressure 132/70 O2 Sat by Pulse Oximetry 86 Intake and Output: Intake & Output 05/20/22 05/21/22 05/22/22 05/23/22 11:59 11:59 11:59 11:59 Intake Total 3081 / 3081 3802 / 3802 2236 / 223 Balance 3081 / 3081 3802 / 3802 2236 - Physical Exam Oriented: Normal Eyes: Normal Ear: Normal Nose: Normal Throat: Normal Respiratory: Diminished, Wheezes Cardiovascular: Normal : Normal Auscultation: Bowel Sounds: Normal Tenderness: Epigastric, Mild Skin: Decreased Turgur Musculoskeletal: Back:Lumbar Psychiatric: Anxiety Affect: Anxious Speech Pattern: Clear, Appropriate - Laboratory and Diagnostics Result Diagrams: 05/22/22 05:57 05/22/22 05:57 Labs: 05/17/22 21:25 Sputum - Expectorated Sputum Sputum Culture - Final 05/17/22 21:25 Sputum - Expectorated Sputum - Final 05/17/22 17:08 Urine,Clean Catch Urine Culture - Final 05/17/22 20:24 Blood Blood Culture - Preliminary 05/17/22 20:18 Blood Blood Culture - Preliminary Laboratory WBC 9.6 X10^3/uL (3.6-10.0) 05/22/22 05:57 RBC 5.27 X10^6/uL (3.5-5.4) 05/22/22 05:57 Hgb 15.3 g/dL (12.0-16.0) 05/22/22 05:57 Hct 45.6 % (36.0-47.0) 05/22/22 05:57 MCV 86.5 fL (80.0-100.0) 05/22/22 05:57 MCH 29.0 pg (27.0-34.0) 05/22/22 05:57 MCHC 33.5 g/dL (33.0-35.0) 05/22/22 05:57 RDW 13.6 % (11.6-16.5) 05/22/22 05:57 Plt Count 232 X10^3/uL (150.0-450.0) 05/22/22 05:57 Plt Count Comment Adequate (ADEQUATE) 05/22/22 05:57 MPV 7.5 fL (7.4-11.0) 05/22/22 05:57 Neut % (Auto) 94.4 % (42.0-75.0) H 05/22/22 05:57 Lymph % (Auto) 1.5 % (21.0-51.0) L 05/22/22 05:57 [place] % (Auto) 3.9 % (0.0-13.0) 05/22/22 05:57 Eos % (Auto) 0.0 % (0.9-2.9) L 05/22/22 05:57 Baso % (Auto) 0.2 % (0.2-1.0) 05/22/22 05:57 Neut # (Auto) 9.1 x10^3/uL (2.2-4.8) H 05/22/22 05:57 Lymph # (Auto) 0.1 X10^3/uL (1.3-2.9) L 05/22/22 05:57 [place] # (Auto) 0.4 x10^3/uL (0.3-0.8) 05/22/22 05:57 Eos # (Auto) 0.0 x10^3/uL (0.0-0.2) 05/22/22 05:57 Baso # (Auto) 0.0 X10^3/uL (0.0-0.1) 05/22/22 05:57 Absolute Nucleated RBC 0.1 /100WBC 05/22/22 05:57 Total Counted 100 05/22/22 05:57 Neutrophils % (Manual) 94 % (39-76) H 05/22/22 05:57 Band Neutrophils % 2 % (0-10) 05/22/22 05:57 Lymphocytes % (Manual) 2 % (13-43) L 05/22/22 05:57 Monocytes % (Manual) 2 % (4-9) L 05/22/22 05:57 Plt Morphology Comment Normal (NORMAL) 05/22/22 05:57 RBC Morphology Normal (NORMAL) 05/22/22 05:57 D-Dimer 0.51 ug/ml (0.0-0.57) 05/20/22 08:25 Sample Site Lrad 05/22/22 10:15 ABG pH 7.440 (7.35-7.45) 05/22/22 10:15 ABG pCO2 44.0 mmHg (35.0-45.0) 05/22/22 10:15 ABG pO2 38.0 mmHg (80.0-100.0) L* 05/22/22 10:15 ABG HCO3 29.9 mmol/L (22-26) H 05/22/22 10:15 ABG O2 Saturation 75.0 % (90-100) L* 05/22/22 10:15 ABG Base Excess 5.1 mmol/L (-2.0-2.0) H 05/22/22 10:15 Raul Test Pos 05/22/22 10:15 A-a Gradient 57.0 mmHg 05/22/22 10:15 FiO2 21.0 05/22/22 10:15 Blood Gas Comments Brenda well ah 05/22/22 10:15 Sodium 131 mmol/L (136-145) L 05/22/22 05:57 Corrected Sodium 135 mmol/L (136-145) L 05/22/22 05:57 Potassium 4.6 mmol/L (3.5-5.1) 05/22/22 05:57 Chloride 96 mmol/L (98-107) L 05/22/22 05:57 Carbon Dioxide 28.8 mmol/L (21-32) 05/22/22 05:57 BUN 27 mg/dL (7-18) H 05/22/22 05:57 Creatinine 0.92 mg/dL (0.55-1.02) 05/22/22 05:57 Est GFR (MDRD) Af Amer > 60 (>60) 05/22/22 05:57 Est GFR (MDRD) Non-Af > 60 (>60) 05/22/22 05:57 Glucose 250 mg/dL (65-99) H 05/22/22 05:57 POC Glucose (mg/dL) 313 mg/dL (65-99) H 05/22/22 11:23 Hemoglobin A1c 7.1 % 05/18/22 12:30 Calcium 8.3 mg/dL (8.5-10.1) L 05/22/22 05:57 Corrected Calcium 9.6 mg/dL (8.5-10.1) 05/22/22 05:57 Magnesium 1.9 mg/dL (2.0-2.9) L 05/22/22 05:57 Total Bilirubin 0.30 mg/dL (0.2-1.0) 05/22/22 05:57 AST 15 Units/L (15-37) 05/22/22 05:57 ALT 15 Units/L (12-78) 05/22/22 05:57 Alkaline Phosphatase 65 Units/L (46-116) 05/22/22 05:57 Creatine Kinase 70 Units/L (26-192) 05/20/22 08:25 Troponin I High Sens 13.0 ng/L (4.0-60.0) 05/20/22 08:25 Total Protein 5.6 g/dL (6.4-8.2) L 05/22/22 05:57 Albumin 2.4 g/dL (3.4-5.0) L 05/22/22 05:57 Globulin 3.2 g/dL (2.5-4.5) 05/22/22 05:57 Albumin/Globulin Ratio 0.8 Ratio (1.1-2.1) L 05/22/22 05:57 Specimen Type Clean catch urine 05/17/22 17:08 Urine Color Yellow (YELLOW) 05/17/22 17:08 Urine Appearance Slightly hazy (CLEAR) 05/17/22 17:08 Urine pH 5.0 (5.0 - 8.0) 05/17/22 17:08 Ur Specific [place] 1.015 (1.000-1.030) 05/17/22 17:08 Urine Protein 4+ (NEGATIVE) 05/17/22 17:08 Urine Glucose (UA) Negative (NEGATIVE) 05/17/22 17:08 Urine Ketones 1+ (NEGATIVE) 05/17/22 17:08 Urine Blood 1+ (NEGATIVE) 05/17/22 17:08 Urine Nitrite Negative (NEGATIVE) 05/17/22 17:08 Urine Bilirubin 1+ (NEGATIVE) 05/17/22 17:08 Urine Urobilinogen 1+ (NORMAL) 05/17/22 17:08 Ur Leukocyte Esterase 1+ (NEGATIVE) 05/17/22 17:08 Urine RBC 3-5 /HPF (0-3) A 05/17/22 17:08 Urine WBC 3-5 /HPF (0-5) 05/17/22 17:08 Ur Squamous Epith Cells Rare /HPF (NEGATIVE) 05/17/22 17:08 Urine Bacteria Trace /HPF (NEGATIVE) 05/17/22 17:08 Ur Culture Indicated? No/not indicated 05/17/22 17:08 SARS-CoV-2 (PCR) Positive (NEGATIVE) A 05/17/22 17:08 Influenza Type A (PCR) Negative (NEGATIVE) 05/17/22 17:08 Influenza Type B (PCR) Negative (NEGATIVE) 05/17/22 17:08 RSV (PCR) Negative (NEGATIVE) 05/17/22 17:08 - Plan (1) Pneumonia due to 2019 novel coronavirus Status: Acute Plan: ADMIT, IV ATBX THERAPY, SUPPLEMENTAL O2. ABG ON ADMISSION, VERIFY HOME MEDICATION. BLOOD AND SPUTUM CULTURES OBTAINED ON ADMISSION. CARDIAC MONITORING (2) Hypoxemia Status: Acute (3) COPD exacerbation Status: Acute
[2022-05-22] MEDS: MAGNESIUM SULFATE 1 GRAM/100 mL PREMIX 1 G/100 ML BAG IV PRN ×2 (13:29→14:54)
[2022-05-22] MEDS: SOLU-Medrol 40 MG VIAL IVP SCH ×2 (13:31→21:00)
[2022-05-22] MEDS: SNACK - Diabetic Appropriate PO SCH ×2 (20:20)
[2022-05-22] MEDS: LEVAQUIN PREMIX IV 500 MG 500 MG/100 ML BAG IV SCH (20:51)
[2022-05-23] MEDS: DUONEB 0.5 MG/3 MG (3 mL) NEB SCH ×6 (00:35→20:00)
[2022-05-23 05:24] LABS: BASOPHILS % (AUTO) 0 % (0.2-1.0); HEMATOCRIT 47.2 % (36.0-47.0); HEMOGLOBIN 15.8 g/dL (12.0-16.0); LYMPHOCYTES # (AUTO) 0.2 X10^3/uL (1.3-2.9); LYMPHOCYTES % (AUTO) 1.9 % (21.0-51.0); MEAN CORPUSCULAR HEMOGLOBIN 29.1 pg (27.0-34.0); MEAN CORPUSCULAR HGB CONC 33.4 g/dL (33.0-35.0); MEAN CORPUSCULAR VOLUME 87.1 fL (80.0-100.0); MEAN PLATELET VOLUME 7.5 fL (7.4-11.0); MONOCYTES # (AUTO) 0.3 x10^3/uL (0.3-0.8); MONOCYTES % (AUTO) 3.1 % (0.0-13.0); NEUTROPHILS # (AUTO) 10.2 x10^3/uL (2.2-4.8); RED BLOOD COUNT 5.42 X10^6/uL (3.5-5.4); RED CELL DISTRIBUTION WIDTH 13.9 % (11.6-16.5); WHITE BLOOD COUNT 10.7 X10^3/uL (3.6-10.0)
[2022-05-23 05:36] LABS: ALANINE AMINOTRANSFERASE 13 Units/L (12-78); ALBUMIN 2.5 g/dL (3.4-5.0); ALKALINE PHOSPHATASE 60 Units/L (46-116); ASPARTATE AMINO TRANSFERASE 11 Units/L (15-37); BLOOD UREA NITROGEN 26 mg/dL (7-18); CALCIUM 8.3 mg/dL (8.5-10.1); CARBON DIOXIDE 30.7 mmol/L (21-32); CHLORIDE 95 mmol/L (98-107); COR CA(FOR HYPOALB) 9.5 mg/dL (8.5-10.1); COR NA(FOR HYPERGLY) 133 mmol/L (136-145); CREATININE 0.98 mg/dL (0.55-1.02); SODIUM 130 mmol/L (136-145); TOTAL PROTEIN 5.7 g/dL (6.4-8.2); eGFR NON BLACK RACES > 60 (>60)
[2022-05-23 05:43] LABS: BAND NEUTROPHILS % 3 % (0-10); PLATELET MORPHOLOGY COMMENT NORMAL (NORMAL)
[2022-05-23] MEDS: SOLU-Medrol 40 MG VIAL IVP SCH ×3 (05:54→21:22)
[2022-05-23] MEDS: NovoLIN R (or HumuLIN R) SUBCUT PRN ×4 (06:22→22:05)
[2022-05-23] MEDS: PULMICORT NEB TX 0.5 MG NEB SCH ×2 (08:55→20:00)
[2022-05-23] MEDS: LOVENOX INJ 40 MG SYR SC SCH (08:59)
[2022-05-23] MEDS: ZITHROMAX INJ 500 MG VIAL 500 MG in NS 250 ML IV 250 ML IV SCH (09:00)
[2022-05-23] MEDS: ROBITUSSIN DM PO SCH ×4 (09:00→21:22)
[2022-05-23] MEDS: PROTONIX INJ 40 MG VIAL IVP SCH (09:00)
[2022-05-23] MEDS: JANUVIA PO SCH (09:01)
[2022-05-23] MEDS: VSL#3 PO SCH (09:01)
[2022-05-23] MEDS: NYSTATIN SUSP MT SCH ×4 (09:01→21:22)
[2022-05-23] MEDS: NS 1,000 ML IV 1,000 ML IV SCH (18:23)
[2022-05-23] MEDS: SNACK - Diabetic Appropriate PO SCH ×2 (19:57)
[2022-05-23] MEDS: LEVAQUIN PREMIX IV 500 MG 500 MG/100 ML BAG IV SCH (20:01)
[2022-05-24] MEDS: NS 1,000 ML IV 1,000 ML IV SCH ×2 (01:52→17:21)
[2022-05-24] MEDS: DUONEB 0.5 MG/3 MG (3 mL) NEB SCH ×6 (04:30→21:00)
[2022-05-24 05:04] LABS: BASOPHILS # (AUTO) 0.1 X10^3/uL (0.0-0.1); BASOPHILS % (AUTO) 1.4 % (0.2-1.0); EOSINOPHILS % (AUTO) 0.2 % (0.9-2.9); HEMATOCRIT 47.1 % (36.0-47.0); LYMPHOCYTES # (AUTO) 0.3 X10^3/uL (1.3-2.9); LYMPHOCYTES % (AUTO) 2.9 % (21.0-51.0); MEAN CORPUSCULAR HEMOGLOBIN 29.6 pg (27.0-34.0); MEAN CORPUSCULAR VOLUME 87.1 fL (80.0-100.0); MEAN PLATELET VOLUME 7.1 fL (7.4-11.0); MONOCYTES # (AUTO) 0.2 x10^3/uL (0.3-0.8); MONOCYTES % (AUTO) 2.5 % (0.0-13.0); NEUTROPHILS # (AUTO) 8.2 x10^3/uL (2.2-4.8); RED CELL DISTRIBUTION WIDTH 13.7 % (11.6-16.5); WHITE BLOOD COUNT 8.8 X10^3/uL (3.6-10.0)
[2022-05-24] MEDS: SOLU-Medrol 40 MG VIAL IVP SCH ×3 (05:06→21:01)
[2022-05-24 05:22] LABS: ALANINE AMINOTRANSFERASE 15 Units/L (12-78); ALBUMIN 2.4 g/dL (3.4-5.0); ALKALINE PHOSPHATASE 51 Units/L (46-116); ASPARTATE AMINO TRANSFERASE 13 Units/L (15-37); BLOOD UREA NITROGEN 25 mg/dL (7-18); CARBON DIOXIDE 29.9 mmol/L (21-32); CHLORIDE 95 mmol/L (98-107); COR CA(FOR HYPOALB) 9.3 mg/dL (8.5-10.1); COR NA(FOR HYPERGLY) 131 mmol/L (136-145); CREATININE 0.91 mg/dL (0.55-1.02); SODIUM 129 mmol/L (136-145); TOTAL PROTEIN 5.3 g/dL (6.4-8.2); eGFR NON BLACK RACES > 60 (>60)
[2022-05-24 05:44] LABS: BAND NEUTROPHILS % 4 % (0-10); METAMYELOCYTES % 1; PLATELET MORPHOLOGY COMMENT NORMAL (NORMAL)
[2022-05-24] MEDS: NYSTATIN SUSP MT SCH ×4 (08:39→21:01)
[2022-05-24] MEDS: ROBITUSSIN DM PO SCH ×4 (08:39→21:01)
[2022-05-24] MEDS: PROTONIX INJ 40 MG VIAL IVP SCH (08:39)
[2022-05-24] MEDS: LOVENOX INJ 40 MG SYR SC SCH (08:40)
[2022-05-24] MEDS: VSL#3 PO SCH (08:40)
[2022-05-24] MEDS: JANUVIA PO SCH (08:41)
[2022-05-24] MEDS: ZITHROMAX INJ 500 MG VIAL 500 MG in NS 250 ML IV 250 ML IV SCH (08:42)
[2022-05-24] MEDS: PULMICORT NEB TX 0.5 MG NEB SCH ×2 (08:55→21:00)
--- NOTE | 2022-05-24 09:18 | PCM.PROG ---
Progress Note Progress Note for Day of Date of Exam: 05/23/22 Subjective Subjective: The patient is a 66-year-old white female being treated for COVID-19 pneumonia with hypoxia. This morning she reports some improvement in her symptoms. No acute events overnight. She has been treated with Remdesivir. Labs: Wbc 10.7, Hgb 15.8, Plt 259, Na 133, K 4.9, Creatinine 0.98, Glucose 240. The patient is on antibiotics with Levaquin and azithromycin. She is also on Solu- Medrol and aggressive respiratory therapy. The patient has been hyperglycemic with no history of previous diabetes mellitus that is likely exacerbated by the corticosteroids she is receiving. The patient reports that appetite and strength is improving. The patient continues to require supplemental oxygen of 3L nasal cannula. Otherwise, will continue with current treatment plan. Continue to closely monitor and follow up labs/imaging in the morning. Past Medical Family Social History Allergies: Allergies codeine Adverse Reaction (Severe, Verified 05/17/22 22:54) nausea/vomiting Review of Systems ROS: No change since H&P Vital Signs and I&O's Vital Signs: Temperature 98.2 F Pulse Rate [Right Brachial] 90 Pulse Rate [Left Radial] 71 Pulse Rate 62 Respiratory Rate 19 Blood Pressure [Right Arm] 151/92 Blood Pressure [Left Arm] 125/81 Blood Pressure 132/70 O2 Sat by Pulse Oximetry 88 Intake and Output: Intake & Output 05/21/22 05/22/22 05/23/22 05/24/22 23:59 23:59 23:59 23:59 Intake Total 2110 3419 / 3419 2762 / 2762 1305 / 1305 Balance 2110 3419 / 3419 2762 / 2762 1305 / 1305 Physical Exam Oriented: Normal Eyes: Normal Ear: Normal Nose: Normal Throat: Normal Respiratory: Diminished and Wheezes Cardiovascular: Normal : Normal Auscultation: Bowel Sounds: Normal Tenderness: Epigastric and Mild Skin: Decreased Turgur Musculoskeletal: Back:Lumbar Psychiatric: Anxiety Affect: Anxious Speech Pattern: Clear and Appropriate Laboratory and Diagnostics Result Diagrams: 05/24/22 04:38 05/24/22 04:38 Labs: 05/17/22 20:24 Blood Blood Culture - Final 05/17/22 20:18 Blood Blood Culture - Final 05/17/22 21:25 Sputum - Expectorated Sputum Sputum Culture - Final 05/17/22 21:25 Sputum - Expectorated Sputum - Final 05/17/22 17:08 Urine,Clean Catch Urine Culture - Final Laboratory WBC 8.8 X10^3/uL (3.6-10.0) 05/24/22 04:38 RBC 5.40 X10^6/uL (3.5-5.4) 05/24/22 04:38 Hgb 16.0 g/dL (12.0-16.0) 05/24/22 04:38 Hct 47.1 % (36.0-47.0) H 05/24/22 04:38 MCV 87.1 fL (80.0-100.0) 05/24/22 04:38 MCH 29.6 pg (27.0-34.0) 05/24/22 04:38 MCHC 34.0 g/dL (33.0-35.0) 05/24/22 04:38 RDW 13.7 % (11.6-16.5) 05/24/22 04:38 Plt Count 243 X10^3/uL (150.0-450.0) 05/24/22 04:38 Plt Count Comment Adequate (ADEQUATE) 05/24/22 04:38 MPV 7.1 fL (7.4-11.0) L 05/24/22 04:38 Neut % (Auto) 93.0 % (42.0-75.0) H 05/24/22 04:38 Lymph % (Auto) 2.9 % (21.0-51.0) L 05/24/22 04:38 [place] % (Auto) 2.5 % (0.0-13.0) 05/24/22 04:38 Eos % (Auto) 0.2 % (0.9-2.9) L 05/24/22 04:38 Baso % (Auto) 1.4 % (0.2-1.0) H 05/24/22 04:38 Neut # (Auto) 8.2 x10^3/uL (2.2-4.8) H 05/24/22 04:38 Lymph # (Auto) 0.3 X10^3/uL (1.3-2.9) L 05/24/22 04:38 [place] # (Auto) 0.2 x10^3/uL (0.3-0.8) L 05/24/22 04:38 Eos # (Auto) 0.0 x10^3/uL (0.0-0.2) 05/24/22 04:38 Baso # (Auto) 0.1 X10^3/uL (0.0-0.1) 05/24/22 04:38 Absolute Nucleated RBC 0.0 /100WBC 05/24/22 04:38 Total Counted 100 05/24/22 04:38 Neutrophils % (Manual) 88 % (39-76) H 05/24/22 04:38 Band Neutrophils % 4 % (0-10) 05/24/22 04:38 Lymphocytes % (Manual) 4 % (13-43) L 05/24/22 04:38 Monocytes % (Manual) 3 % (4-9) L 05/24/22 04:38 Metamyelocytes % 1 05/24/22 04:38 Plt Morphology Comment Normal (NORMAL) 05/24/22 04:38 RBC Morphology Normal (NORMAL) 05/24/22 04:38 D-Dimer 0.51 ug/ml (0.0-0.57) 05/20/22 08:25 Sample Site Lrad 05/22/22 10:15 ABG pH 7.440 (7.35-7.45) 05/22/22 10:15 ABG pCO2 44.0 mmHg (35.0-45.0) 05/22/22 10:15 ABG pO2 38.0 mmHg (80.0-100.0) L* 05/22/22 10:15 ABG HCO3 29.9 mmol/L (22-26) H 05/22/22 10:15 ABG O2 Saturation 75.0 % (90-100) L* 05/22/22 10:15 ABG Base Excess 5.1 mmol/L (-2.0-2.0) H 05/22/22 10:15 Raul Test Pos 05/22/22 10:15 A-a Gradient 57.0 mmHg 05/22/22 10:15 FiO2 21.0 05/22/22 10:15 Blood Gas Comments Brenda well ah 05/22/22 10:15 Sodium 129 mmol/L (136-145) L 05/24/22 04:38 Corrected Sodium 131 mmol/L (136-145) L 05/24/22 04:38 Potassium 4.6 mmol/L (3.5-5.1) 05/24/22 04:38 Chloride 95 mmol/L (98-107) L 05/24/22 04:38 Carbon Dioxide 29.9 mmol/L (21-32) 05/24/22 04:38 BUN 25 mg/dL (7-18) H 05/24/22 04:38 Creatinine 0.91 mg/dL (0.55-1.02) 05/24/22 04:38 Est GFR (MDRD) Af Amer > 60 (>60) 05/24/22 04:38 Est GFR (MDRD) Non-Af > 60 (>60) 05/24/22 04:38 Glucose 184 mg/dL (65-99) H 05/24/22 04:38 POC Glucose (mg/dL) 307 mg/dL (65-99) H 05/23/22 21:58 Hemoglobin A1c 7.1 % 05/18/22 12:30 Calcium 8.0 mg/dL (8.5-10.1) L 05/24/22 04:38 Corrected Calcium 9.3 mg/dL (8.5-10.1) 05/24/22 04:38 Magnesium 1.9 mg/dL (2.0-2.9) L 05/23/22 04:20 Total Bilirubin 0.40 mg/dL (0.2-1.0) 05/24/22 04:38 AST 13 Units/L (15-37) L 05/24/22 04:38 ALT 15 Units/L (12-78) 05/24/22 04:38 Alkaline Phosphatase 51 Units/L (46-116) 05/24/22 04:38 Creatine Kinase 70 Units/L (26-192) 05/20/22 08:25 Troponin I High Sens 13.0 ng/L (4.0-60.0) 05/20/22 08:25 Total Protein 5.3 g/dL (6.4-8.2) L 05/24/22 04:38 Albumin 2.4 g/dL (3.4-5.0) L 05/24/22 04:38 Globulin 2.9 g/dL (2.5-4.5) 05/24/22 04:38 Albumin/Globulin Ratio 0.8 Ratio (1.1-2.1) L 05/24/22 04:38 Specimen Type Clean catch urine 05/17/22 17:08 Urine Color Yellow (YELLOW) 05/17/22 17:08 Urine Appearance Slightly hazy (CLEAR) 05/17/22 17:08 Urine pH 5.0 (5.0 - 8.0) 05/17/22 17:08 Ur Specific [place] 1.015 (1.000-1.030) 05/17/22 17:08 Urine Protein 4+ (NEGATIVE) 05/17/22 17:08 Urine Glucose (UA) Negative (NEGATIVE) 05/17/22 17:08 Urine Ketones 1+ (NEGATIVE) 05/17/22 17:08 Urine Blood 1+ (NEGATIVE) 05/17/22 17:08 Urine Nitrite Negative (NEGATIVE) 05/17/22 17:08 Urine Bilirubin 1+ (NEGATIVE) 05/17/22 17:08 Urine Urobilinogen 1+ (NORMAL) 05/17/22 17:08 Ur Leukocyte Esterase 1+ (NEGATIVE) 05/17/22 17:08 Urine RBC 3-5 /HPF (0-3) A 05/17/22 17:08 Urine WBC 3-5 /HPF (0-5) 05/17/22 17:08 Ur Squamous Epith Cells Rare /HPF (NEGATIVE) 05/17/22 17:08 Urine Bacteria Trace /HPF (NEGATIVE) 05/17/22 17:08 Ur Culture Indicated? No/not indicated 05/17/22 17:08 SARS-CoV-2 (PCR) Positive (NEGATIVE) A 05/17/22 17:08 Influenza Type A (PCR) Negative (NEGATIVE) 05/17/22 17:08 Influenza Type B (PCR) Negative (NEGATIVE) 05/17/22 17:08 RSV (PCR) Negative (NEGATIVE) 05/17/22 17:08 Plan (1) Pneumonia due to 2019 novel coronavirus: Status: Acute Plan: ADMIT, IV ATBX THERAPY, SUPPLEMENTAL O2 ABG ON ADMISSION, VERIFY HOME MEDICATION BLOOD AND SPUTUM CULTURES OBTAINED ON ADMISSION CARDIAC MONITORING (2) Hypoxemia: Status: Acute (3) COPD exacerbation: Status: Acute
--- NOTE | 2022-05-24 11:51 | PCM.PROG ---
Progress Note Progress Note for Day of Date of Exam: 05/24/22 Subjective Subjective: The patient is a 66-year-old white female being treated for COVID-19 pneumonia with hypoxia. This morning pt is sitting at bedside eating breakfast. She reports improvement in her symptoms. No acute events overnight. She has been treated with Remdesivir. Labs: Wbc 8.8, Hgb 16, Plt 243, Na 131, K 4.6, Creatinine 0.91, Glucose 184. The patient is on antibiotics with Levaquin and azithromycin. She is also on Solu-Medrol and aggressive respiratory therapy. The patient has been hyperglycemic with no history of previous diabetes mellitus that is likely exacerbated by the corticosteroids she is receiving. Appetite and strength is improving. She is currently requiring supplemental oxygen of 2L nasal cannula. Otherwise, will continue with current treatment plan. Continue to closely monitor and follow up labs/imaging in the morning. Past Medical Family Social History Allergies: Allergies codeine Adverse Reaction (Severe, Verified 05/17/22 22:54) nausea/vomiting Review of Systems ROS: No change since H&P Vital Signs and I&O's Vital Signs: Temperature 98.2 F Pulse Rate [Right Brachial] 90 Pulse Rate [Left Radial] 71 Pulse Rate 90 Respiratory Rate 19 Blood Pressure [Right Arm] 151/92 Blood Pressure [Left Arm] 125/81 Blood Pressure 132/70 O2 Sat by Pulse Oximetry 90 Intake and Output: Intake & Output 05/21/22 05/22/22 05/23/22 05/24/22 23:59 23:59 23:59 23:59 Intake Total 2110 3419 / 3419 2762 / 2762 1305 / 1305 Balance 2110 3419 / 3419 2762 / 2762 1305 / 1305 Physical Exam Oriented: Normal Eyes: Normal Ear: Normal Nose: Normal Throat: Normal Respiratory: Diminished and Wheezes Cardiovascular: Normal : Normal Auscultation: Bowel Sounds: Normal Tenderness: Epigastric and Mild Skin: Decreased Turgur Musculoskeletal: Back:Lumbar Psychiatric: Anxiety Affect: Anxious Speech Pattern: Clear and Appropriate Laboratory and Diagnostics Result Diagrams: 05/24/22 04:38 05/24/22 04:38 Labs: 05/17/22 20:24 Blood Blood Culture - Final 05/17/22 20:18 Blood Blood Culture - Final 05/17/22 21:25 Sputum - Expectorated Sputum Sputum Culture - Final 05/17/22 21:25 Sputum - Expectorated Sputum - Final 05/17/22 17:08 Urine,Clean Catch Urine Culture - Final Laboratory WBC 8.8 X10^3/uL (3.6-10.0) 05/24/22 04:38 RBC 5.40 X10^6/uL (3.5-5.4) 05/24/22 04:38 Hgb 16.0 g/dL (12.0-16.0) 05/24/22 04:38 Hct 47.1 % (36.0-47.0) H 05/24/22 04:38 MCV 87.1 fL (80.0-100.0) 05/24/22 04:38 MCH 29.6 pg (27.0-34.0) 05/24/22 04:38 MCHC 34.0 g/dL (33.0-35.0) 05/24/22 04:38 RDW 13.7 % (11.6-16.5) 05/24/22 04:38 Plt Count 243 X10^3/uL (150.0-450.0) 05/24/22 04:38 Plt Count Comment Adequate (ADEQUATE) 05/24/22 04:38 MPV 7.1 fL (7.4-11.0) L 05/24/22 04:38 Neut % (Auto) 93.0 % (42.0-75.0) H 05/24/22 04:38 Lymph % (Auto) 2.9 % (21.0-51.0) L 05/24/22 04:38 [place] % (Auto) 2.5 % (0.0-13.0) 05/24/22 04:38 Eos % (Auto) 0.2 % (0.9-2.9) L 05/24/22 04:38 Baso % (Auto) 1.4 % (0.2-1.0) H 05/24/22 04:38 Neut # (Auto) 8.2 x10^3/uL (2.2-4.8) H 05/24/22 04:38 Lymph # (Auto) 0.3 X10^3/uL (1.3-2.9) L 05/24/22 04:38 [place] # (Auto) 0.2 x10^3/uL (0.3-0.8) L 05/24/22 04:38 Eos # (Auto) 0.0 x10^3/uL (0.0-0.2) 05/24/22 04:38 Baso # (Auto) 0.1 X10^3/uL (0.0-0.1) 05/24/22 04:38 Absolute Nucleated RBC 0.0 /100WBC 05/24/22 04:38 Total Counted 100 05/24/22 04:38 Neutrophils % (Manual) 88 % (39-76) H 05/24/22 04:38 Band Neutrophils % 4 % (0-10) 05/24/22 04:38 Lymphocytes % (Manual) 4 % (13-43) L 05/24/22 04:38 Monocytes % (Manual) 3 % (4-9) L 05/24/22 04:38 Metamyelocytes % 1 05/24/22 04:38 Plt Morphology Comment Normal (NORMAL) 05/24/22 04:38 RBC Morphology Normal (NORMAL) 05/24/22 04:38 D-Dimer 0.51 ug/ml (0.0-0.57) 05/20/22 08:25 Sample Site Lrad 05/22/22 10:15 ABG pH 7.440 (7.35-7.45) 05/22/22 10:15 ABG pCO2 44.0 mmHg (35.0-45.0) 05/22/22 10:15 ABG pO2 38.0 mmHg (80.0-100.0) L* 05/22/22 10:15 ABG HCO3 29.9 mmol/L (22-26) H 05/22/22 10:15 ABG O2 Saturation 75.0 % (90-100) L* 05/22/22 10:15 ABG Base Excess 5.1 mmol/L (-2.0-2.0) H 05/22/22 10:15 Raul Test Pos 05/22/22 10:15 A-a Gradient 57.0 mmHg 05/22/22 10:15 FiO2 21.0 05/22/22 10:15 Blood Gas Comments Brenda well ah 05/22/22 10:15 Sodium 129 mmol/L (136-145) L 05/24/22 04:38 Corrected Sodium 131 mmol/L (136-145) L 05/24/22 04:38 Potassium 4.6 mmol/L (3.5-5.1) 05/24/22 04:38 Chloride 95 mmol/L (98-107) L 05/24/22 04:38 Carbon Dioxide 29.9 mmol/L (21-32) 05/24/22 04:38 BUN 25 mg/dL (7-18) H 05/24/22 04:38 Creatinine 0.91 mg/dL (0.55-1.02) 05/24/22 04:38 Est GFR (MDRD) Af Amer > 60 (>60) 05/24/22 04:38 Est GFR (MDRD) Non-Af > 60 (>60) 05/24/22 04:38 Glucose 184 mg/dL (65-99) H 05/24/22 04:38 POC Glucose (mg/dL) 307 mg/dL (65-99) H 05/23/22 21:58 Hemoglobin A1c 7.1 % 05/18/22 12:30 Calcium 8.0 mg/dL (8.5-10.1) L 05/24/22 04:38 Corrected Calcium 9.3 mg/dL (8.5-10.1) 05/24/22 04:38 Magnesium 1.9 mg/dL (2.0-2.9) L 05/23/22 04:20 Total Bilirubin 0.40 mg/dL (0.2-1.0) 05/24/22 04:38 AST 13 Units/L (15-37) L 05/24/22 04:38 ALT 15 Units/L (12-78) 05/24/22 04:38 Alkaline Phosphatase 51 Units/L (46-116) 05/24/22 04:38 Creatine Kinase 70 Units/L (26-192) 05/20/22 08:25 Troponin I High Sens 13.0 ng/L (4.0-60.0) 05/20/22 08:25 Total Protein 5.3 g/dL (6.4-8.2) L 05/24/22 04:38 Albumin 2.4 g/dL (3.4-5.0) L 05/24/22 04:38 Globulin 2.9 g/dL (2.5-4.5) 05/24/22 04:38 Albumin/Globulin Ratio 0.8 Ratio (1.1-2.1) L 05/24/22 04:38 Specimen Type Clean catch urine 05/17/22 17:08 Urine Color Yellow (YELLOW) 05/17/22 17:08 Urine Appearance Slightly hazy (CLEAR) 05/17/22 17:08 Urine pH 5.0 (5.0 - 8.0) 05/17/22 17:08 Ur Specific [place] 1.015 (1.000-1.030) 05/17/22 17:08 Urine Protein 4+ (NEGATIVE) 05/17/22 17:08 Urine Glucose (UA) Negative (NEGATIVE) 05/17/22 17:08 Urine Ketones 1+ (NEGATIVE) 05/17/22 17:08 Urine Blood 1+ (NEGATIVE) 05/17/22 17:08 Urine Nitrite Negative (NEGATIVE) 05/17/22 17:08 Urine Bilirubin 1+ (NEGATIVE) 05/17/22 17:08 Urine Urobilinogen 1+ (NORMAL) 05/17/22 17:08 Ur Leukocyte Esterase 1+ (NEGATIVE) 05/17/22 17:08 Urine RBC 3-5 /HPF (0-3) A 05/17/22 17:08 Urine WBC 3-5 /HPF (0-5) 05/17/22 17:08 Ur Squamous Epith Cells Rare /HPF (NEGATIVE) 05/17/22 17:08 Urine Bacteria Trace /HPF (NEGATIVE) 05/17/22 17:08 Ur Culture Indicated? No/not indicated 05/17/22 17:08 SARS-CoV-2 (PCR) Positive (NEGATIVE) A 05/17/22 17:08 Influenza Type A (PCR) Negative (NEGATIVE) 05/17/22 17:08 Influenza Type B (PCR) Negative (NEGATIVE) 05/17/22 17:08 RSV (PCR) Negative (NEGATIVE) 05/17/22 17:08 Plan (1) Pneumonia due to 2019 novel coronavirus: Status: Acute Plan: ADMIT, IV ATBX THERAPY, SUPPLEMENTAL O2 ABG ON ADMISSION, VERIFY HOME MEDICATION BLOOD AND SPUTUM CULTURES OBTAINED ON ADMISSION CARDIAC MONITORING (2) Hypoxemia: Status: Acute (3) COPD exacerbation: Status: Acute
[2022-05-24] MEDS: NovoLIN R (or HumuLIN R) SUBCUT PRN ×2 (12:28→17:21)
[2022-05-24] MEDS: LEVAQUIN PREMIX IV 500 MG 500 MG/100 ML BAG IV SCH (19:27)
[2022-05-24] MEDS: SNACK - Diabetic Appropriate PO SCH ×2 (19:33)
[2022-05-24 19:35] VITALS: BMI 25.9
[2022-05-25] MEDS: DUONEB 0.5 MG/3 MG (3 mL) NEB SCH ×6 (01:00→20:25)
[2022-05-25] MEDS: SOLU-Medrol 40 MG VIAL IVP SCH ×2 (05:02→14:53)
[2022-05-25] MEDS: NS 1,000 ML IV 1,000 ML IV SCH ×3 (05:02→20:30)
[2022-05-25 05:07] LABS: BASOPHILS % (AUTO) 0.2 % (0.2-1.0); HEMATOCRIT 46.8 % (36.0-47.0); HEMOGLOBIN 15.6 g/dL (12.0-16.0); LYMPHOCYTES # (AUTO) 0.2 X10^3/uL (1.3-2.9); LYMPHOCYTES % (AUTO) 2.6 % (21.0-51.0); MEAN CORPUSCULAR HGB CONC 33.4 g/dL (33.0-35.0); MEAN PLATELET VOLUME 7.1 fL (7.4-11.0); MONOCYTES # (AUTO) 0.3 x10^3/uL (0.3-0.8); MONOCYTES % (AUTO) 4.5 % (0.0-13.0); NEUTROPHILS # (AUTO) 6.6 x10^3/uL (2.2-4.8); NEUTROPHILS % (AUTO) 92.7 % (42.0-75.0); RED BLOOD COUNT 5.38 X10^6/uL (3.5-5.4); RED CELL DISTRIBUTION WIDTH 13.6 % (11.6-16.5); WHITE BLOOD COUNT 7.1 X10^3/uL (3.6-10.0)
[2022-05-25 05:17] LABS: ALANINE AMINOTRANSFERASE 15 Units/L (12-78); ALBUMIN 2.3 g/dL (3.4-5.0); ALKALINE PHOSPHATASE 49 Units/L (46-116); ASPARTATE AMINO TRANSFERASE 11 Units/L (15-37); BLOOD UREA NITROGEN 25 mg/dL (7-18); CALCIUM 7.8 mg/dL (8.5-10.1); CARBON DIOXIDE 30.3 mmol/L (21-32); CHLORIDE 95 mmol/L (98-107); COR CA(FOR HYPOALB) 9.2 mg/dL (8.5-10.1); COR NA(FOR HYPERGLY) 135 mmol/L (136-145); CREATININE 0.98 mg/dL (0.55-1.02); SODIUM 131 mmol/L (136-145); eGFR NON BLACK RACES > 60 (>60)
[2022-05-25 05:36] LABS: BAND NEUTROPHILS % 5 % (0-10); METAMYELOCYTES % 1; PLATELET MORPHOLOGY COMMENT NORMAL (NORMAL)
[2022-05-25] MEDS: NovoLIN R (or HumuLIN R) SUBCUT PRN ×3 (06:03→17:35)
--- NOTE | 2022-05-25 06:16 | RAD ---
HISTORYCOVID-19, shortness of breathSTUDYChest AP [id number]/06/2023FINDINGSHear t size is normal. Reba are normal. Lungs are well inflated. Bibasilar predominantly interstitial lung changes are present with some ground-glass infiltrate in the right lung base both unchanged when compared to the prior examination. The upper lung ramon remain free of acute infiltrates. No pleural effusions are identified. Bony thorax is unremarkable.IMPRESSIONNo change bibasilar interstitial and right basilar ground-glass and interstitial infiltrate right greater than leftElectronically signed by: BUCK HAIDER (May 25, 2022 06:14:58)
[2022-05-25 08:26] LABS: ABG ALLEN TEST POS; ABG BASE EXCESS 3.8 mmol/L (-2.0-2.0); ABG HCO3 29.2 mmol/L (22-26)
[2022-05-25] MEDS: ZITHROMAX INJ 500 MG VIAL 500 MG in NS 250 ML IV 250 ML IV SCH (08:57)
[2022-05-25] MEDS: PROTONIX INJ 40 MG VIAL IVP SCH (08:58)
[2022-05-25] MEDS: JANUVIA PO SCH (08:58)
[2022-05-25] MEDS: ROBITUSSIN DM PO SCH ×4 (08:58→20:28)
[2022-05-25] MEDS: NYSTATIN SUSP MT SCH ×4 (09:08→20:28)
[2022-05-25] MEDS: VSL#3 PO SCH (09:09)
[2022-05-25] MEDS: PULMICORT NEB TX 0.5 MG NEB SCH ×2 (09:10→20:25)
[2022-05-25] MEDS: LOVENOX INJ 40 MG SYR SC SCH (09:11)
[2022-05-25] MEDS ORDERED: NORVASC TAB 2.5 MG ONE (20:20)
[2022-05-25] MEDS: LEVAQUIN PREMIX IV 500 MG 500 MG/100 ML BAG IV SCH (20:28)
[2022-05-25] MEDS: SNACK - Diabetic Appropriate PO SCH (20:31)
[2022-05-25] MEDS: NORVASC TAB 2.5 MG PO SCH (20:31)
[2022-05-26] MEDS: DUONEB 0.5 MG/3 MG (3 mL) NEB SCH ×3 (01:00→09:17)
[2022-05-26] MEDS: SOLU-Medrol 40 MG VIAL IVP SCH ×2 (05:40)
[2022-05-26 05:44] LABS: BASOPHILS % (AUTO) 0.3 % (0.2-1.0); EOSINOPHILS % (AUTO) 0.1 % (0.9-2.9); HEMATOCRIT 47.2 % (36.0-47.0); HEMOGLOBIN 15.7 g/dL (12.0-16.0); LYMPHOCYTES # (AUTO) 0.5 X10^3/uL (1.3-2.9); LYMPHOCYTES % (AUTO) 7.4 % (21.0-51.0); MEAN CORPUSCULAR HEMOGLOBIN 29.1 pg (27.0-34.0); MEAN CORPUSCULAR HGB CONC 33.3 g/dL (33.0-35.0); MEAN CORPUSCULAR VOLUME 87.3 fL (80.0-100.0); MEAN PLATELET VOLUME 7.1 fL (7.4-11.0); MONOCYTES # (AUTO) 0.6 x10^3/uL (0.3-0.8); MONOCYTES % (AUTO) 8.7 % (0.0-13.0); NEUTROPHILS # (AUTO) 5.6 x10^3/uL (2.2-4.8); NEUTROPHILS % (AUTO) 83.5 % (42.0-75.0); RED BLOOD COUNT 5.41 X10^6/uL (3.5-5.4); RED CELL DISTRIBUTION WIDTH 13.6 % (11.6-16.5); WHITE BLOOD COUNT 6.7 X10^3/uL (3.6-10.0)
--- NOTE | 2022-05-26 05:52 | RAD ---
HISTORYPNEUMONIA, SOB, COVID +STUDYCHEST, 1 [id number]/08/2023FINDINGSThe cardiomediastinal silhouette is stable. Worsening bibasilar pleural parenchymal opacities. No pneumothorax. The bony thorax appears intact.IMPRESSIONWorsening bibasilar opacities and developing effusions. Findings consistent with history of COVID-19. Continued follow-up recommended.Electronically signed by: BUCK HAIDER (May 26, 2022 05:51:23)
[2022-05-26 05:54] LABS: BLOOD UREA NITROGEN 20 mg/dL (7-18); CALCIUM 8.1 mg/dL (8.5-10.1); CARBON DIOXIDE 33.3 mmol/L (21-32); CHLORIDE 98 mmol/L (98-107); COR NA(FOR HYPERGLY) 138 mmol/L (136-145); CREATININE 0.95 mg/dL (0.55-1.02); SODIUM 136 mmol/L (136-145); eGFR NON BLACK RACES > 60 (>60)
[2022-05-26 06:29] LABS: ALANINE AMINOTRANSFERASE 17 Units/L (12-78); ALBUMIN 2.3 g/dL (3.4-5.0); ALKALINE PHOSPHATASE 46 Units/L (46-116); ASPARTATE AMINO TRANSFERASE 13 Units/L (15-37); COR CA(FOR HYPOALB) 9.5 mg/dL (8.5-10.1); TOTAL PROTEIN 4.9 g/dL (6.4-8.2)
[2022-05-26] MEDS ORDERED: NORVASC TAB 2.5 MG ONE (08:21)
[2022-05-26] MEDS ORDERED: ZITHROMAX INJ 500 MG VIAL IV ONE (08:25)
[2022-05-26] MEDS: PROTONIX INJ 40 MG VIAL IVP SCH (08:33)
[2022-05-26] MEDS: ZITHROMAX INJ 500 MG VIAL 500 MG in NS 250 ML IV 250 ML IV SCH (08:33)
[2022-05-26] MEDS: NYSTATIN SUSP MT SCH (08:33)
[2022-05-26] MEDS: JANUVIA PO SCH (08:33)
[2022-05-26] MEDS: ROBITUSSIN DM PO SCH (08:34)
[2022-05-26] MEDS: LOVENOX INJ 40 MG SYR SC SCH (08:34)
[2022-05-26] MEDS: NORVASC TAB 2.5 MG PO SCH (08:35)
[2022-05-26] MEDS: VSL#3 PO SCH (08:35)
[2022-05-26 09:12] LABS: ABG BASE EXCESS 6.3 mmol/L (-2.0-2.0)
[2022-05-26 09:13] LABS: ABG HCO3 30.6 mmol/L (22-26)
[2022-05-26] MEDS: PULMICORT NEB TX 0.5 MG NEB SCH (09:17)
--- NOTE | 2022-05-26 09:41 | RAD ---
HISTORYPneumonia, COVID-19STUDYChest AP [id number]/09/2023FINDINGSHear t size is normal. Reba are normal. Lungs are well inflated. There has been some improvement in the bibasilar infiltrates being followed. The upper lung ramon are clear. No pleural effusions are identified. Bony thorax is unremarkable.IMPRESSIONSome improvement in the bibasilar infiltrates being followedElectronically signed by: BUCK HAIDER (May 26, 2022 09:40:00)
[2022-05-26 14:11] VITALS: BP 136/78
== END 2022-05-26 13:40 | disposition home health service (06) | DRG 177 ==
LOC: MED/SURG 14:08 → ER 14:08 → MED/SURG 20:45
PROVIDERS: ADMIT Internal Medicine; ATTEND Internal Medicine
DX: U07.1 COVID-19; Z72.0 Tobacco use; E87.1 Hypo-osmolality and hyponatremia; J12.82 Pneumonia due to coronavirus disease 2019; E11.65 Type 2 diabetes mellitus with hyperglycemia; R03.0 Elevated blood-pressure reading, without diagnosis of hypertension; R06.02 Shortness of breath; R51.9 Headache, unspecified; R09.02 Hypoxemia; J44.1 Chronic obstructive pulmonary disease with (acute) exacerbation